=== PATIENT | male | born 1965 | race Caucasian/White ===

== ENCOUNTER → 2023-06-12 15:47 | Outpatient (REF) | payer OTHER, SELFPAY | LOC: HWRAD 15:47 | PROVIDERS: ATTENDING PHYSICIAN Family Medicine | DX: M79.5 Residual foreign body in soft tissue (principal) | CPT/HCPCS: 73630 ==

== ENCOUNTER → 2023-10-23 15:42 | Outpatient (REF) | payer OTHER, SELFPAY | LOC: HWRAD 15:42 | PROVIDERS: ATTENDING PHYSICIAN Urology; FAMILY PHYSICIAN Family Medicine | DX: Z13.5 Encounter for screening for eye and ear disorders (principal) | CPT/HCPCS: 70030 ==

== ENCOUNTER → 2023-10-29 19:53 | Outpatient (REF) | payer OTHER, SELFPAY | LOC: MRI 3T 19:53 | PROVIDERS: ATTENDING PHYSICIAN Urology; FAMILY PHYSICIAN Family Medicine | DX: R97.20 Elevated prostate specific antigen [PSA] (principal) | CPT/HCPCS: 72197; A9575 ==